=== PATIENT | female | born 1965 | race Caucasian/White ===

== ENCOUNTER → 2025-07-09 09:26 | Outpatient (CLI) | payer OTHER | END | disposition home or self-care (01) | LOC: TOM 09:26 | PROVIDERS: ATTEND Family Medicine | DX: R51.9 Headache, unspecified (principal); F01.A4 Vascular dementia, mild, with anxiety ==

== ENCOUNTER 2025-07-09 10:32 | Outpatient (CLI) | payer OTHER | END 2025-07-09 10:37 | disposition home or self-care (01) | LOC: NUCLEAR 10:32 | PROVIDERS: ATTEND Family Medicine | DX: F01.A4 Vascular dementia, mild, with anxiety (principal) ==